=== PATIENT | male | born 1950 | race Caucasian/White ===

== ENCOUNTER 2024-10-02 10:01 | Emergency (ER) | payer MEDICARE, OTHER ==
--- OUTSIDE RECORDS SUMMARY | 2024-10-02 10:05 | XMS REPORT | Continuity of Care Document ---
Author Name Unknown Address [address] [facility] [place] [address] [facility] Address [address] [facility] [address] [place] [address] Care Team Providers Care Nursing Care Partner Name Role Phone VICKI CHANDRIKA Rhodes Primary Care Physician WAYNE Mehta Attending Clinician Unavailab WAYNE Medellin Attending Clinician UnavailWayne Barbosa DO Attending Clinician [phone] MANISHA SIMPSON K.HKenna Attending Clinician Chace Simpson MD, Manisha K.HKenna Attending Clinician + [phone] Doctor Unassigned, [place] Attending Clinician U Craig Rivera DO Attending Clinician [phone] Tera Orozco MD Attending Clinician [phone] Nurse, [facility] Attending Clinician Unava ilable Unknown, Attending Attending Clinician UnavailDana Nuñez RN Attending Clinician [phone] Isac Castro DO Attending Clinician [phone] Indira Judd Attending Clinician [phone] Santos Christianson MD Attending Clinician [phone] Verito Collado Attending Clinician Ailza Guerrier Attending Clinician [phone] Verito Collado Admitting Clinician Payers Payer Name Policy Type Policy Number Effective Date Expirati on Date Source WILLIAM O [id number] 2023 00:00:00 [employer] MED[employer]VANTAGE [id number] 2022 00:00:00 2023 00:00:00 Problems Condition Name Condition Details Condition Category Status Onset Date Resolution Date Last Treatment Date Treating Clinician Comments Source Fall Fall Disease Active 04-30 00:00: 00 [facility] Severe anemia Severe anemia Disease Active 04-29 00:00: 00 Overview: Formattin g of this note might be different from the original. Added automatic ally from request for surgery [id number] [facility] Allergies, Adverse Reactions, Alerts Allergy Name Allergy Type Status Severity Reaction(s) Onset Date Inactive Date Treating Clinician Comments Source NO KNOWN ALLERGIE S Drug Class Active [facility] Social History Social Habit Start Date Stop Date Quantity Comments Source History of tobacco use 1961-12-18 00:00:00 Cigarette Smoker [facility] Alcohol Frequency [facility] History SDOH [facility]d Drinks [facility] History SDOH Alcohol Binge [facility] Exposure to SARS-CoV-2 (event) 2022-12-11 00:00:00 2022-12-21 14:20:00 Not sure [facility] History of Social function 2020-04-24 00:00:00 2020-04-24 00:00:00 [facility] Alcohol intake 2019-12-07 00:00:00 2019-12-07 00:00:00 Current non-drinker of alcohol (finding) [facility] Education - What is the highest level of school you have completed or the highest degree you have received? 2019-04-30 00:00:00 2019-04-30 00:00:00 11th grade [facility] History SDOH Financial 2019-04-30 00:00:00 2019-04-30 00:00:00 3 [facility] History SDOH Food Worry 2019-04-30 00:00:00 2019-04-30 00:00:00 1 [facility] History SDOH Food Scarcity 2019-04-30 00:00:00 2019-04-30 00:00:00 1 [facility] History SDOH Transport Med 2019-04-30 00:00:00 2019-04-30 00:00:00 2 [facility] History SDOH Transport Non-Med 2019-04-30 00:00:00 2019-04-30 00:00:00 1 [facility] Alcohol Comment 2019-04-30 00:00:00 2019-04-30 00:00:00 LAST USE 1999 [facility] Tobacco use and exposure 2018-04-06 00:00:00 2018-04-06 00:00:00 Smokeless tobacco non-user [facility] Cigarettes smoked current (pack per day) - Reported 2018-04-06 00:00:00 2018-04-06 00:00:00 [facility] Cigarette pack-years 2018-04-06 00:00:00 2018-04-06 00:00:00 [facility] Sex Assigned At 1950 00:00:00 1950 00:00:00 [facility] Smoking Status Start Date Stop Date Source Smokes tobacco daily 2018-04-06 00:00:00 [facility] Medications Ordered Medication Name Filled Medication Name Start Date Stop Date Current Medication? Ordering Clinician Indication Dosage Frequency Signature (SIG) Comments Components Source apixaban (ELIQUIS) 5 mg tablet 3-04 00:00: 00 Yes 5mg Take 1 tablet by mouth in the morning and 1 tablet in the evening. Indication s: Afib [facility] apixaban (ELIQUIS) 5 mg tablet 2022-09 2-14 00:00: 00 Yes 5mg Take 1 tablet by mouth in the morning and 1 tablet in the evening. Indication s: Afib [facility] fluticasone propion-nishi meteroL 250-50 mcg/dose inhalation disk 2022-09-07 00:00: 00 Yes 1{puff} Inhale 1 Puff every 12 (twelve) hours. [facility] aspirin 81 mg chewable tablet 4-04 15:04: 04 Yes 81mg Take 1 tablet by mouth in the morning. [facility] metoprolol tartrate 50 mg tablet 4-04 00:00: 00 Yes [id number] 50mg Take 1 tablet by mouth in the morning and 1 tablet in the evening. [facility] simvastatin 40 mg tablet 4-04 00:00: 00 Yes [id number] 40mg Take 1 tablet by mouth in the morning. [facility] apixaban (ELIQUIS) 5 mg tablet 4- 00:00: 00 09-01 00:00 :00 No 5mg Take 1 tablet by mouth in the morning and 1 tablet in the evening. Indication s: Afib [facility] apixaban (ELIQUIS) 5 mg tablet 3-10 00:00: 00 12-21 00:00 :00 No 5mg Take 1 tablet by mouth in the morning and 1 tablet in the evening. Indication s: Afib [facility] metoprolol tartrate 50 mg tablet 1-10 00:00: 00 12-21 00:00 :00 No [id number] 50mg Take 1 tablet by mouth in the morning and 1 tablet in the evening. Do all this for 90 days. [facility] fluticasone propion-nishi meteroL 250-50 mcg/dose inhalation disk 1-03 00:00: 00 07-26 00:00 :00 No 1{puff} Inhale 1 Puff every 12 (twelve) hours. [facility] simvastatin 40 mg tablet 2021-09 1-02 00:00: 00 12-21 00:00 :00 No [id number] 40mg TAKE 1 TABLET BY MOUTH IN THE MORNING. [facility] simvastatin 40 mg tablet 0 8-04 00:00: 00 Yes [id number] 40mg Take 1 tablet by mouth in the morning. [facility] metoprolol tartrate 50 mg tablet 7-05 00:00: 00 09-28 00:00 :00 No 50mg Take 1 tablet by mouth 2 (two) times daily. [facility] simvastatin 40 mg tablet 7-05 00:00: 00 04-22 00:00 :00 No [id number] 40mg Take 1 tablet by mouth daily. [facility] simvastatin 40 mg tablet 4-27 00:00: 00 03-23 00:00 :00 No 40mg Take 1 tablet by mouth daily. [facility] apixaban (ELIQUIS) 5 mg tablet 3-16 00:00: 00 11-26 00:00 :00 No 5mg Take 1 tablet by mouth 2 (two) times daily. Indication s: Afib [facility] aspirin 81 mg chewable tablet 1- 14:53: 32 Yes 81mg Take 1 tablet by mouth in the morning. [facility] metoprolol tartrate 25 mg tablet 2020-09 2-17 00:00: 00 03-16 00:00 :00 No 50mg Take 50 mg by mouth 2 (two) times daily. [facility] fluticasone propion-nishi meteroL 250-50 mcg/dose inhalation disk 2020-09 2-16 00:00: 00 Yes 1{puff} Inhale 1 Puff every 12 (twelve) hours. [facility] fluticasone propion-nishi meteroL 250-50 mcg/dose inhalation disk 2020-09 2-16 00:00: 00 09-21 00:00 :00 No 1{puff} Inhale 1 Puff every 12 (twelve) hours. [facility] methocarbam oL 750 mg tablet 2020-09 2-15 00:00: 00 Yes 750mg Take 1 tablet by mouth in the morning and 1 tablet in the evening. [facility] albuterol (PROAIR HFA) 90 mcg/actuati on inhaler 2019-09 1-13 00:00: 00 Yes [id number] 2{puff} Inhale 2 Puffs every 4 (four) hours as needed for Wheezing or Shortness of Breath. [facility] ferrous sulfate 325 mg (65 mg iron) tablet 8-15 00:00: 00 Yes [id number] 325mg Take 1 tablet by mouth 3 (three) times daily with meals. [facility] HYDROcodone -acetaminop hen 10-325 mg tablet 5-16 00:00: 00 Yes TAKE 1 TABLET BY MOUTH TWICE DAILY NEEDED [facility] Immunizations Ordered Immunization Name Filled Immunization Name Date Status Comments Source SARS-COV-2 COVID-19 MODERNA VACCINE 2020-12-15 00:00:00 Completed [facility] SARS-COV-2 COVID-19 MODERNA VACCINE 2020-12-15 00:00:00 Completed [facility] SARS-COV-2 COVID-19 MODERNA VACCINE 2020-12-15 00:00:00 Completed [facility] SARS-COV-2 COVID-19 MODERNA VACCINE 2020-12-15 00:00:00 Completed [facility] SARS-COV-2 COVID-19 MODERNA 12+ YRS VACCINE 2020-12-15 00:00:00 Completed [facility] SARS-COV-2 COVID-19 MODERNA 12+ YRS VACCINE 2020-12-15 00:00:00 Completed [facility] SARS-COV-2 COVID-19 MODERNA 12+ YRS VACCINE 2020-12-15 00:00:00 Completed [facility] SARS-COV-2 COVID-19 MODERNA 12+ YRS VACCINE 2020-12-15 00:00:00 Completed [facility] SARS-COV-2 COVID-19 MODERNA 12+ YRS VACCINE 2020-12-15 00:00:00 Completed [facility] SARS-COV-2 COVID-19 MODERNA 12+ YRS VACCINE 2020-12-15 00:00:00 Completed [facility] SARS-COV-2 COVID-19 MODERNA 12+ YRS VACCINE 2020-12-15 00:00:00 Completed [facility] SARS-COV-2 COVID-19 MODERNA 12+ YRS VACCINE 2020-12-15 00:00:00 Completed [facility] SARS-COV-2 COVID-19 MODERNA 12+ YRS VACCINE 2020-12-15 00:00:00 Completed [facility] SARS-COV-2 COVID-19 MODERNA 12+ YRS VACCINE 2020-12-15 00:00:00 Completed [facility] SARS-COV-2 COVID-19 MODERNA 12+ YRS VACCINE 2020-12-15 00:00:00 Completed [facility] SARS-COV-2 COVID-19 MODERNA 12+ YRS VACCINE 2020-12-15 00:00:00 Completed [facility] SARS-COV-2 COVID-19 MODERNA 12+ YRS VACCINE 2020-12-15 00:00:00 Completed [facility] SARS-COV-2 COVID-19 MODERNA 12+ YRS VACCINE 2020-12-15 00:00:00 Completed [facility] SARS-COV-2 COVID-19 MODERNA 12+ YRS VACCINE 2020-12-15 00:00:00 Completed [facility] SARS-COV-2 COVID-19 MODERNA 12+ YRS VACCINE 2020-12-15 00:00:00 Completed [facility] SARS-COV-2 COVID-19 MODERNA 12+ YRS VACCINE 2020-12-15 00:00:00 Completed [facility] SARS-COV-2 COVID-19 MODERNA 12+ YRS VACCINE 2020-12-15 00:00:00 Completed [facility] SARS-COV-2 COVID-19 MODERNA VACCINE 2020-11-20 00:00:00 Completed [facility] SARS-COV-2 COVID-19 MODERNA VACCINE 2020-11-20 00:00:00 Completed [facility] SARS-COV-2 COVID-19 MODERNA VACCINE 2020-11-20 00:00:00 Completed [facility] SARS-COV-2 COVID-19 MODERNA VACCINE 2020-11-20 00:00:00 Completed [facility] SARS-COV-2 COVID-19 MODERNA 12+ YRS VACCINE 2020-11-20 00:00:00 Completed [facility] SARS-COV-2 COVID-19 MODERNA 12+ YRS VACCINE 2020-11-20 00:00:00 Completed [facility] SARS-COV-2 COVID-19 MODERNA 12+ YRS VACCINE 2020-11-20 00:00:00 Completed [facility] SARS-COV-2 COVID-19 MODERNA 12+ YRS VACCINE 2020-11-20 00:00:00 Completed [facility] SARS-COV-2 COVID-19 MODERNA 12+ YRS VACCINE 2020-11-20 00:00:00 Completed [facility] SARS-COV-2 COVID-19 MODERNA 12+ YRS VACCINE 2020-11-20 00:00:00 Completed [facility] SARS-COV-2 COVID-19 MODERNA 12+ YRS VACCINE 2020-11-20 00:00:00 Completed [facility] SARS-COV-2 COVID-19 MODERNA 12+ YRS VACCINE 2020-11-20 00:00:00 Completed [facility] SARS-COV-2 COVID-19 MODERNA 12+ YRS VACCINE 2020-11-20 00:00:00 Completed [facility] SARS-COV-2 COVID-19 MODERNA 12+ YRS VACCINE 2020-11-20 00:00:00 Completed [facility] SARS-COV-2 COVID-19 MODERNA 12+ YRS VACCINE 2020-11-20 00:00:00 Completed [facility] SARS-COV-2 COVID-19 MODERNA 12+ YRS VACCINE 2020-11-20 00:00:00 Completed [facility] SARS-COV-2 COVID-19 MODERNA 12+ YRS VACCINE 2020-11-20 00:00:00 Completed [facility] SARS-COV-2 COVID-19 MODERNA 12+ YRS VACCINE 2020-11-20 00:00:00 Completed [facility] SARS-COV-2 COVID-19 MODERNA 12+ YRS VACCINE 2020-11-20 00:00:00 Completed [facility] SARS-COV-2 COVID-19 MODERNA 12+ YRS VACCINE 2020-11-20 00:00:00 Completed [facility] SARS-COV-2 COVID-19 MODERNA 12+ YRS VACCINE 2020-11-20 00:00:00 Completed [facility] Influenza High Dose 2019-06-29 00:00:00 Completed [facility] Pneumococcal 13 Conjugate, PCV13 (Prevnar 13) 2019-06-29 00:00:00 Completed [facility] Influenza High Dose 2019-06-29 00:00:00 Completed [facility] Pneumococcal 13 Conjugate, PCV13 (Prevnar 13) 2019-06-29 00:00:00 Completed [facility] Influenza High Dose 2019-06-29 00:00:00 Completed [facility] Pneumococcal 13 Conjugate, PCV13 (Prevnar 13) 2019-06-29 00:00:00 Completed [facility] Influenza High Dose 2019-06-29 00:00:00 Completed [facility] Pneumococcal 13 Conjugate, PCV13 (Prevnar 13) 2019-06-29 00:00:00 Completed [facility] Influenza High Dose 2019-06-29 00:00:00 Completed [facility] Pneumococcal 13 Conjugate, PCV13 (Prevnar 13) 2019-06-29 00:00:00 Completed [facility] Influenza High Dose 2019-06-29 00:00:00 Completed [facility] Pneumococcal 13 Conjugate, PCV13 (Prevnar 13) 2019-06-29 00:00:00 Completed [facility] Influenza High Dose 2019-06-29 00:00:00 Completed [facility] Pneumococcal 13 Conjugate, PCV13 (Prevnar 13) 2019-06-29 00:00:00 Completed [facility] Influenza High Dose 2019-06-29 00:00:00 Completed [facility] Pneumococcal 13 Conjugate, PCV13 (Prevnar 13) 2019-06-29 00:00:00 Completed [facility] Influenza High Dose 2019-06-29 00:00:00 Completed [facility] Pneumococcal 13 Conjugate, PCV13 (Prevnar 13) 2019-06-29 00:00:00 Completed [facility] Influenza High Dose 2019-06-29 00:00:00 Completed [facility] Pneumococcal 13 Conjugate, PCV13 (Prevnar 13) 2019-06-29 00:00:00 Completed [facility] Influenza High Dose 2019-06-29 00:00:00 Completed [facility] Pneumococcal 13 Conjugate, PCV13 (Prevnar 13) 2019-06-29 00:00:00 Completed [facility] Influenza High Dose 2019-06-29 00:00:00 Completed [facility] Pneumococcal 13 Conjugate, PCV13 (Prevnar 13) 2019-06-29 00:00:00 Completed [facility] Influenza High Dose 2019-06-29 00:00:00 Completed [facility] Pneumococcal 13 Conjugate, PCV13 (Prevnar 13) 2019-06-29 00:00:00 Completed [facility] Influenza High Dose 2019-06-29 00:00:00 Completed [facility] Pneumococcal 13 Conjugate, PCV13 (Prevnar 13) 2019-06-29 00:00:00 Completed [facility] Influenza High Dose 2019-06-29 00:00:00 Completed [facility] Pneumococcal 13 Conjugate, PCV13 (Prevnar 13) 2019-06-29 00:00:00 Completed [facility] Influenza High Dose 2019-06-29 00:00:00 Completed [facility] Pneumococcal 13 Conjugate, PCV13 (Prevnar 13) 2019-06-29 00:00:00 Completed [facility] Influenza High Dose 2019-06-29 00:00:00 Completed [facility] Pneumococcal 13 Conjugate, PCV13 (Prevnar 13) 2019-06-29 00:00:00 Completed [facility] Influenza High Dose 2019-06-29 00:00:00 Completed [facility] Pneumococcal 13 Conjugate, PCV13 (Prevnar 13) 2019-06-29 00:00:00 Completed [facility] Influenza High Dose 2019-06-29 00:00:00 Completed [facility] Pneumococcal 13 Conjugate, PCV13 (Prevnar 13) 2019-06-29 00:00:00 Completed [facility] Influenza High Dose 2019-06-29 00:00:00 Completed [facility] Pneumococcal 13 Conjugate, PCV13 (Prevnar 13) 2019-06-29 00:00:00 Completed [facility] Influenza High Dose 2019-06-29 00:00:00 Completed [facility] Pneumococcal 13 Conjugate, PCV13 (Prevnar 13) 2019-06-29 00:00:00 Completed [facility] Influenza High Dose Unknown Completed [facility] Pneumococcal 13 Conjugate, PCV13 (Prevnar 13) Unknown Completed [facility] SARS-COV-2 COVID-19 MODERNA 12+ YRS VACCINE Unknown Completed [facility] Influenza High Dose Unknown Completed [facility] Pneumococcal 13 Conjugate, PCV13 (Prevnar 13) Unknown Completed [facility] SARS-COV-2 COVID-19 MODERNA 12+ YRS VACCINE Unknown Completed [facility] Influenza High Dose Unknown Completed [facility] Pneumococcal 13 Conjugate, PCV13 (Prevnar 13) Unknown Completed [facility] Influenza High Dose Unknown Completed [facility] Pneumococcal 13 Conjugate, PCV13 (Prevnar 13) Unknown Completed [facility] SARS-COV-2 COVID-19 MODERNA 12+ YRS VACCINE Unknown Completed [facility] Influenza High Dose Unknown Completed [facility] Pneumococcal 13 Conjugate, PCV13 (Prevnar 13) Unknown Completed [facility] SARS-COV-2 COVID-19 MODERNA 12+ YRS VACCINE Unknown Completed [facility] Influenza High Dose Unknown Completed [facility] Pneumococcal 13 Conjugate, PCV13 (Prevnar 13) Unknown Completed [facility] SARS-COV-2 COVID-19 MODERNA 12+ YRS VACCINE Unknown Completed [facility] Influenza High Dose Unknown Completed [facility] Pneumococcal 13 Conjugate, PCV13 (Prevnar 13) Unknown Completed [facility] SARS-COV-2 COVID-19 MODERNA 12+ YRS VACCINE Unknown Completed [facility] Influenza High Dose Unknown Completed [facility] Pneumococcal 13 Conjugate, PCV13 (Prevnar 13) Unknown Completed [facility] SARS-COV-2 COVID-19 MODERNA 12+ YRS VACCINE Unknown Completed [facility] Influenza High Dose Unknown Completed [facility] Pneumococcal 13 Conjugate, PCV13 (Prevnar 13) Unknown Completed [facility] SARS-COV-2 COVID-19 MODERNA 12+ YRS VACCINE Unknown Completed [facility] Influenza High Dose Unknown Completed [facility] Pneumococcal 13 Conjugate, PCV13 (Prevnar 13) Unknown Completed [facility] SARS-COV-2 COVID-19 MODERNA 12+ YRS VACCINE Unknown Completed [facility] Vital Signs Vital Name Observation Time Observation Value Comments S ource Systolic blood pressure 2022-12-21 19:46:00 154 mm[Hg] [facility] Diastolic blood pressure 2022-12-21 19:46:00 68 mm[Hg] [facility] Heart rate 2022-12-21 19:46:00 60 /min [facility] Body height 2022-12-21 19:46:00 167.6 cm [facility] Body weight 2022-12-21 19:46:00 82.872 kg [facility] BMI 2022-12-21 19:46:00 29.49 kg/m2 [facility] Oxygen saturation in Arterial blood by Pulse oximetry 2022-12-21 19:46:00 93 /min [facility] Procedures Procedure Date / Time Performed Performing Clinician Source MEDICATION CORRESPONDENCE 2023-11-29 05:01:00 Do ctor Unassigned, [place] [facility] MEDICATION CORRESPONDENCE 2023-09-02 06:01:00 Do ctor Unassigned, [place] [facility] MEDICATION CORRESPONDENCE 2023-07-22 05:01:00 Do ctor Unassigned, [place] [facility] MEDICATION CORRESPONDENCE 2023-02-15 05:01:00 Do ctor Unassigned, [place] [facility] INSURANCE CORRESPONDENCE 2023-02-01 05:01:00 Doc tor Unassigned, [place] [facility] HB ECG ROUTINE & RHYTHM STRIP 2022-12-21 19:39:39 Manisha Simpson [facility] ASSIGNMENT OF BENEFITS 2022-12-21 19:19:05 Docto r Unassigned, [place] [facility] EXTERNAL PROVIDER - ADC CARDIOLOGY 2022-11-30 05:01:00 Doctor Unassigned, [place] [facility] INSURANCE CORRESPONDENCE 2022-08-30 06:01:00 Doc tor Unassigned, [place] [facility] MEDICATION CORRESPONDENCE 2022-07-26 06:01:00 Do ctor Unassigned, [place] [facility] MEDICATION CORRESPONDENCE 2022-04-06 05:01:00 Do ctor Unassigned, [place] [facility] AUTHORIZATION FOR RELEASE OF PHI 2022-03-23 05:01:00 Doctor Unassigned, [place] [facility] Encounters Start Date/Time End Date/Time Encounter Type Admission Type Attending Clinicians Care Facility Care Department Encounter ID Source 2024-10-02 14:00:00 2024-10-02 14:00:00 Outpatient WAYNE AGUAYO SHIWAN [facility] [id number] [facility] 2024-08-31 09:00:00 2024-08-31 09:00:00 Outpatient R WAYNE MÁRQUEZ SHIWAN [facility] [id number] [facility] 2024-01-16 00:00:00 2024-01-16 00:00:00 Telephone Wayne Márquez [facility] [id number] 350.1.13.10 4.2.7.2.686 [id number] [facility] 2023-12-22 13:00:00 2023-12-22 13:00:00 Outpatient R MANISHA SIMPSON [facility] [id number] [facility] 2023-12-22 00:00:00 2023-12-22 00:00:00 Refill Manisha Simpson [facility] [id number] 350.1.13.10 4.2.7.2.686 [id number] [facility] 2023-11-30 00:00:00 2023-11-30 00:00:00 Telephone Manisha Simpson [facility] [id number] 350.1.13.10 4.2.7.2.686 [id number] [facility] 2023-11-29 00:00:00 2023-11-29 00:00:00 Orders Only Doctor Unassigned, [place] [facility] [id number] 350.1.13.10 4.2.7.2.686 [id number] [facility] 2023-09-02 00:00:00 2023-09-02 00:00:00 Orders Only Doctor Unassigned, [place] [facility] [id number] 350.1.13.10 4.2.7.2.686 [id number] [facility] 2023-08-29 00:00:00 2023-08-29 00:00:00 Telephone Manisha Simpson [facility] [id number] 350.1.13.10 4.2.7.2.686 [id number] [facility] 2023-07-25 00:00:00 2023-07-25 00:00:00 Telephone Wayne Máruqez [facility] [id number] 350.1.13.10 4.2.7.2.686 [id number] [facility] 2023-07-22 00:00:00 2023-07-22 00:00:00 Orders Only Doctor Unassigned, [place] [facility] [id number] 350.1.13.10 4.2.7.2.686 [id number] [facility] 2023-03-02 00:00:00 2023-03-02 00:00:00 Telephone Manisha Simpson [facility] [id number] 350.1.13.10 4.2.7.2.686 [id number] [facility] 2023-02-15 00:00:00 2023-02-15 00:00:00 Telephone Manisha Simpson [facility] [id number] 350.1.13.10 4.2.7.2.686 [id number] [facility] 2023-02-15 00:00:00 2023-02-15 00:00:00 Orders Only Doctor Unassigned, [place] [facility] [id number] 350.1.13.10 4.2.7.2.686 [id number] [facility] 2023-02-01 00:00:00 2023-02-01 00:00:00 Orders Only Doctor Unassigned, [place] [facility] [id number] 350.1.13.10 4.2.7.2.686 [id number] [facility] 2023-01-31 00:00:00 2023-01-31 00:00:00 Telephone Manisha Simpson [facility] 1.2.840.114 350.1.13.10 4.2.7.2.686 [id number] 059 [id number] [facility] 2022-12-22 00:00:00 2022-12-22 00:00:00 Telephone Manisha Simpson [facility] 1.2840.114 350.1.13.10 4.2.7.2.686 [id number] 059 [id number] [facility] 2022-12-21 14:30:00 2022-12-21 15:10:33 Outpatient R MANISHA SIMPSON [facility] [id number] [facility] 2022-12-21 14:30:00 2022-12-21 15:10:33 Office Visit Manisha Simpson [facility] 1.2840.114 350.1.13.10 4.2.7.2.686 [id number] 059 [id number] [facility] 2022-12-21 00:00:00 2022-12-21 00:00:00 Orders Only Doctor Unassigned, [place] [facility] 1.2.840.114 350.1.13.10 4.2.7.2.686 [id number] 009 [id number] [facility] 2022-11-30 00:00:00 2022-11-30 00:00:00 Orders Only Doctor Unassigned, [place] [facility] 1.2.840.114 350.1.13.10 4.2.7.2.686 [id number] 009 [id number] [facility] 2022-11-29 00:00:00 2022-11-29 00:00:00 Case Management Manisha Simpson [facility] 1.2.840.114 350.1.13.10 4.2.7.2.686 [id number] 059 [id number] [facility] 2022-11-25 00:00:00 2022-11-25 00:00:00 Telephone Manisha Simpson [facility] 1.2.840.114 350.1.13.10 4.2.7.2.686 [id number] 059 [id number] [facility] 2022-09-27 00:00:00 2022-09-27 00:00:00 Telephone Manisha Simpson [facility] 1.2.840.114 350.1.13.10 4.2.7.2.686 [id number] 059 [id number] [facility] 2022-09-20 00:00:00 2022-09-20 00:00:00 Wayne Seay [facility] 1.2.840.114 350.1.13.10 4.2.7.2.686 [id number] 085 [id number] [facility] 2022-09-20 00:00:00 2022-09-20 00:00:00 Wayne Seay [facility] 1.2.840.114 350.1.13.10 4.2.7.2.686 [id number] 085 [id number] [facility] 2022-09-15 16:00:00 2022-09-15 16:00:00 Outpatient R EVELIN SIMPSONIL [facility] [id number] [facility] 2022-08-30 00:00:00 2022-08-30 00:00:00 Orders Only Doctor Unassigned, [place] [facility] 1.2.840.114 350.1.13.10 4.2.7.2.686 [id number] 009 [id number] [facility] 2022-07-26 00:00:00 2022-07-26 00:00:00 Orders Only Doctor Unassigned, [place] [facility] 1.2.840.114 350.1.13.10 4.2.7.2.686 [id number] 009 [id number] [facility] 2022-07-21 00:00:00 2022-07-21 00:00:00 Manisha DealKenna [facility] 1.2.840.114 350.1.13.10 4.2.7.2.686 [id number] 059 [id number] [facility] 2022-07-21 00:00:00 2022-07-21 00:00:00 Manisha DealHKenna [facility] 1.2.840.114 350.1.13.10 4.2.7.2.686 [id number] 059 [id number] [facility] 2022-04-21 00:00:00 2022-04-21 00:00:00 Manisha DealHKenna [facility] 1.2.840.114 350.1.13.10 4.2.7.2.686 [id number] 059 [id number] [facility] 2022-04-06 00:00:00 2022-04-06 00:00:00 Orders Only Doctor Unassigned, [place] [facility] 1.2.840.114 350.1.13.10 4.2.7.2.686 [id number] 009 [id number] [facility] 2022-03-29 00:00:00 2022-03-29 00:00:00 Patient Secure Msg Doctor Unassigned, [place] [facility] 1.2.840.114 350.1.13.10 4.2.7.2.686 [id number] 059 [id number] [facility] 2022-03-23 00:00:00 2022-03-23 00:00:00 Orders Only Doctor Unassigned, [place] [facility] 1.2.840.114 350.1.13.10 4.2.7.2.686 [id number] 009 [id number] [facility] 2022-03-16 00:00:00 2022-03-16 00:00:00 Refill Manisha SimpsonHKenna [facility] 1.2840.114 350.1.13.10 4.2.7.2.686 [id number] 059 [id number] [facility] 2022-03-11 00:00:00 2022-03-11 00:00:00 Telephone Manisha Simpson [facility] 1.2840.114 350.1.13.10 4.2.7.2.686 [id number] 059 [id number] [facility] 2022-03-11 00:00:00 2022-03-11 00:00:00 Orders Only Doctor Unassigned, [place] [facility] 1.2.840.114 350.1.13.10 4.2.7.2.686 [id number] 009 [id number] [facility] 2022-01-29 12:00:00 2022-01-29 12:00:00 Telemedici ne Visit Wayne Márquez [facility] 1.2840.114 350.1.13.10 4.2.7.2.686 [id number] 085 [id number] [facility] 2022-01-29 12:00:00 2022-01-29 11:23:44 Outpatient R YULISA WAYNE YIP [facility] [id number] [facility] 2022-01-28 13:30:00 2022-01-28 13:30:00 Outpatient R MÁRQUEZ WAYNE YIP [facility] [id number] [facility] 2022-01-13 00:00:00 2022-01-13 00:00:00 Refill Manisha SimpsonHKenna [facility] 1.2.840.114 350.1.13.10 4.2.7.2.686 [id number] 059 [id number] [facility] 2021-12-02 00:00:00 2021-12-02 00:00:00 Refill Manisha Simpson K.HKenna [facility] 1.2.840.114 350.1.13.10 4.2.7.2.686 [id number] 059 [id number] [facility] 2021-11-12 00:00:00 2021-11-12 00:00:00 Refill Manisha Simpson KKennaHKenna [facility] 1.2.840.114 350.1.13.10 4.2.7.2.686 [id number] 059 [id number] [facility] 2021-11-02 00:00:00 2021-11-02 00:00:00 Telephone Manisha Simpson K.HKenna [facility] 1.2.840.114 350.1.13.10 4.2.7.2.686 [id number] 059 [id number] [facility] 2021-10-20 00:00:00 2021-10-20 00:00:00 Orders Only Doctor Unassigned, [place] [facility] 1.2.840.114 350.1.13.10 4.2.7.2.686 [id number] [id number] [facility] 2021-10-15 00:00:00 2021-10-15 00:00:00 Telephone Manisha Simpson [facility] 1.2.840.114 350.1.13.10 4.2.7.2.686 [id number] 059 [id number] [facility] 2021-09-21 14:30:00 2021-09-21 14:59:23 Outpatient R TATIANA [facility] [id number] [facility] 2021-09-21 14:30:00 2021-09-21 14:59:23 [id number] 2021-09-21 14:30:00 2021-09-21 14:59:23 Office Visit Manisha Simpson [facility] 1.2.840.114 350.1.13.10 4.2.7.2.686 [id number] 059 [id number] [facility] 2021-09-21 00:00:00 2021-09-21 00:00:00 Orders Only Doctor Unassigned, [place] [facility] 1.2840.114 350.1.13.10 4.2.7.2.686 [id number] 009 [id number] [facility] 2021-09-14 00:00:00 2021-09-14 00:00:00 Telephone Manisha Simpson [facility] 1.2.840.114 350.1.13.10 4.2.7.2.686 [id number] 059 [id number] [facility] 2021-09-03 00:00:00 2021-09-03 00:00:00 Wayne Seay [facility] 1.2.840.114 350.1.13.10 4.2.7.2.686 [id number] 085 [id number] [facility] 2021-09-02 00:00:00 2021-09-02 00:00:00 Orders Only Doctor Unassigned, [place] [facility] 1.2.840.114 350.1.13.10 4.2.7.2.686 [id number] 009 [id number] [facility] 2021-08-17 00:00:00 2021-08-17 00:00:00 Case Management Manisha Simpson [facility] 1.2.840.114 350.1.13.10 4.2.7.2.686 [id number] [id number] [facility] 2021-08-07 00:00:00 2021-08-07 00:00:00 Telephone Manisha Simpson [facility] 1.2.840.114 350.1.13.10 4.2.7.2.686 [id number] 059 [id number] [facility] 2021-08-06 00:00:00 2021-08-06 00:00:00 Orders Only Doctor Unassigned, [place] [facility] 1.2.840.114 350.1.13.10 4.2.7.2.686 [id number] 009 [id number] [facility] 2021-08-06 00:00:00 2021-08-06 00:00:00 Telephone Manisha Simpson [facility] 1.2.840.114 350.1.13.10 4.2.7.2.686 [id number] 059 [id number] [facility] 2021-08-03 00:00:00 2021-08-03 00:00:00 Telephone Manisha Simpson [facility] 1.2.840.114 350.1.13.10 4.2.7.2.686 [id number] 059 [id number] [facility] 2021-08-03 00:00:00 2021-08-03 00:00:00 Telephone Manisha Simpson [facility] 1.2.840.114 350.1.13.10 4.2.7.2.686 [id number] 059 [id number] [facility] 2021-03-05 00:00:00 2021-03-05 00:00:00 Orders Only Doctor Unassigned, [place] [facility] 1.2.840.114 350.1.13.10 4.2.7.2.686 [id number] 009 [id number] [facility] 2021-01-14 00:00:00 2021-01-14 00:00:00 Telephone Manisha Simpson [facility] 1.2.840.114 350.1.13.10 4.2.7.2.686 [id number] 059 [id number] [facility] 2021-01-14 00:00:00 2021-01-14 00:00:00 Orders Only Doctor Unassigned, [place] [facility] 1.2.840.114 350.1.13.10 4.2.7.2.686 [id number] 009 [id number] [facility] 2021-01-02 00:00:00 2021-01-02 00:00:00 Orders Only Doctor Unassigned, [place] [facility] 1.2.840.114 350.1.13.10 4.2.7.2.686 [id number] 009 [id number] [facility] 2020-12-30 00:00:00 2020-12-30 00:00:00 Refill Manisha Simpson [facility] 1.2.840.114 350.1.13.10 4.2.7.2.686 [id number] 059 [id number] [facility] 2020-12-25 00:00:00 2020-12-25 00:00:00 Refill Manisha Simpson [facility] 1.2.840.114 350.1.13.10 4.2.7.2.686 [id number] 059 [id number] [facility] 2020-12-25 00:00:00 2020-12-25 00:00:00 Refill Evelin Simpsonil [facility] 1.2.840.114 350.1.13.10 4.2.7.2.686 [id number] 059 [id number] [facility] 2020-12-10 00:00:00 2020-12-10 00:00:00 Refill Manisha Simpson [facility] 1.2.840.114 350.1.13.10 4.2.7.2.686 [id number] 059 [id number] [facility] 2020-11-24 00:00:00 2020-11-24 00:00:00 Patient Outreach Craig Jasso [facility] 1.2.840.114 350.1.13.10 4.2.7.2.686 [id number] [facility] 2020-11-07 00:00:00 2020-11-07 00:00:00 Refill Evelin Simpsonil [facility] 1.2.840.114 350.1.13.10 4.2.7.2.686 [id number] 059 [id number] [facility] 2020-10-09 00:00:00 2020-10-09 00:00:00 Orders Only Doctor Unassigned, [place] [facility] 1.2.840.114 350.1.13.10 4.2.7.2.686 [id number] [id number] [facility] 2020-09-25 00:00:00 2020-09-25 00:00:00 Refill Manisha Simpson [facility] 1.2.840.114 350.1.13.10 4.2.7.2.686 [id number] 059 [id number] [facility] 2020-09-25 00:00:00 2020-09-25 00:00:00 Refill Manisha Simpson [facility] 1.2.840.114 350.1.13.10 4.2.7.2.686 [id number] 059 [id number] [facility] 2020-09-10 00:00:00 2020-09-10 00:00:00 Telephone Manisha Simpson [facility] 1.2.840.114 350.1.13.10 4.2.7.2.686 [id number] 059 [id number] [facility] 2020-08-27 00:00:00 2020-08-27 00:00:00 Orders Only Doctor Unassigned, [place] [facility] 1.2.840.114 350.1.13.10 4.2.7.2.686 [id number] [id number] [facility] 2020-08-01 10:25:40 2020-08-01 10:45:40 Telemedici ne Visit Wayne Márquez [facility] 1.2.840.114 350.1.13.10 4.2.7.2.686 [id number] 085 [id number] [facility] 2020-08-01 10:00:00 2020-08-01 10:00:00 Outpatient R WAYNE MÁRQUEZ SHIWAN [facility] [id number] [facility] 2020-07-31 00:00:00 2020-07-31 00:00:00 Orders Only Doctor Unassigned, [place] [facility] 1.2840.114 350.1.13.10 4.2.7.2.686 [id number] 009 [id number] [facility] 2020-07-21 00:00:00 2020-07-21 00:00:00 Telephone Manisha Simpson [facility] 1.2840.114 350.1.13.10 4.2.7.2.686 [id number] 059 [id number] [facility] 2020-07-20 00:00:00 2020-07-20 00:00:00 Orders Only Doctor Unassigned, [place] [facility] 1.2840.114 350.1.13.10 4.2.7.2.686 [id number] 009 [id number] [facility] 2020-06-12 11:10:53 2020-06-12 13:03:48 Telemedici ne Visit Manisha Simpson [facility] 1.2840.114 350.1.13.10 4.2.7.2.686 [id number] 059 [id number] [facility] 2020-06-12 11:00:00 2020-06-12 13:03:48 Outpatient R MANISHA SIMPSON [facility] [id number] [facility] 2020-06-06 00:00:00 2020-06-06 00:00:00 Refill Manisha Simpson [facility] 1.2840.114 350.1.13.10 4.2.7.2.686 [id number] 059 [id number] [facility] 2020-06-06 00:00:00 2020-06-06 00:00:00 Telephone Manisha Simpson [facility] 1.2840.114 350.1.13.10 4.2.7.2.686 [id number] 059 [id number] [facility] 2020-05-12 00:00:00 2020-05-12 00:00:00 Orders Only Doctor Unassigned, [place] [facility] 1.2.840.114 350.1.13.10 4.2.7.2.686 [id number] 009 [id number] [facility] 2020-01-28 00:00:00 2020-01-28 00:00:00 Refill Manisha SimpsonHKenna [facility] 1.2.840.114 350.1.13.10 4.2.7.2.686 [id number] 059 [id number] [facility] 2020-01-01 00:00:00 2020-01-01 00:00:00 Telephone Manisha Simpson [facility] 1.2.840.114 350.1.13.10 4.2.7.2.686 [id number] 059 [id number] [facility] 2019-12-07 08:13:21 2019-12-07 21:11:22 Telemedici ne Visit Manisha Simpson [facility] 1.2.840.114 350.1.13.10 4.2.7.2.686 [id number] 059 [id number] [facility] 2019-12-07 15:30:00 2019-12-07 15:30:00 Outpatient R MANISHA SIMPSON [facility] [id number] [facility] 2019-12-06 00:00:00 2019-12-06 00:00:00 Refill Manisha SimpsonHKenna [facility] 1.2.840.114 350.1.13.10 4.2.7.2.686 [id number] 059 [id number] [facility] 2019-10-29 00:00:00 2019-10-29 00:00:00 Refill Manisha Simpson [facility] 1.2.840.114 350.1.13.10 4.2.7.2.686 [id number] 059 [id number] [facility] 2019-06-05 00:00:00 2019-06-05 00:00:00 Orders Only Doctor Unassigned, [place] [facility] 1.2.840.114 350.1.13.10 4.2.7.2.686 [id number] 009 [id number] [facility] 2019-06-04 00:00:00 2019-06-04 00:00:00 Telephone Wayne Márquez [facility] 1.2.840.114 350.1.13.10 4.2.7.2.686 [id number] 085 [id number] [facility] 2019-05-23 00:00:00 2019-05-23 00:00:00 Telephone Manisha Simpson [facility] 1.2.840.114 350.1.13.10 4.2.7.2.686 [id number] 059 [id number] [facility] 2019-05-18 19:48:32 2019-05-18 21:58:00 Emergency Tera Orozco S [facility] 1.2.840.114 350.1.13.10 4.2.7.2.686 [id number] 084 [id number] [facility] 2019-05-18 19:16:43 2019-05-18 19:31:43 Nurse Visit Nurse, [facility], Attending [facility] 1.2.840.114 350.1.13.10 4.2.7.2.686 [id number] [facility] 2019-05-18 00:00:00 2019-05-18 00:00:00 Orders Only Doctor Unassigned, [place] [facility] 1.2.840.114 350.1.13.10 4.2.7.2.686 [id number] 009 [id number] [facility] 2019-05-07 00:00:00 2019-05-07 00:00:00 Transition of Care Dana Austin 1.2.840.114 350.1.13.10 4.2.7.2.686 [id number] [facility] 2019-05-04 00:00:00 2019-05-04 00:00:00 Transition of Care Dana Austin 1.2.840.114 350.1.13.10 4.2.7.2.686 [id number] [facility] 2019-05-04 00:00:00 2019-05-04 00:00:00 Telephone Isac Castro [facility] 1.2.840.114 350.1.13.10 4.2.7.2.686 [id number] [facility] 2019-04-29 19:06:23 2019-05-03 16:49:00 Hospital Encounter Indira Jin, Santos Collado, [facility] 1.2.840.114 350.1.13.10 4.2.7.2.686 [id number] 094 [id number] [facility] 2019-04-19 00:00:00 2019-04-19 00:00:00 Telephone Aliza Mccall [facility] 1.2.840.114 350.1.13.10 4.2.7.2.686 [id number] 085 [id number] [facility]
[2024-10-02] MEDS ORDERED: ALBUTEROL 2.5 MG/3 ML NEB SOL ONE (10:30)
[2024-10-02] MEDS ORDERED: IPRATROPIUM BROM 0.5MG/2.5ML ONE (10:30)
[2024-10-02 10:36] LABS: Absolute Lymphocytes (CBC) 0.6 K/uL (0.7-4.9); Absolute Monocytes 1.6 K/uL (0.1-1.3); Absolute Neutrophil 7.9 K/uL (1.8-8.0); Basophils % 0.3 % (0-1.3); Eosinophils % 0.1 % (0-4.4); Hematocrit 22.4 % (39.6-49.0); Hemoglobin 6.8 g/dL (13.6-17.9); Lymphocytes % 5.7 % (15.3-44.8); MCH 27.3 pg (27.0-35.0); MCHC 30.4 g/dL (32.0-36.0); MCV 89.9 fL (80-100); MPV 7.8 fL (7.6-11.3); Neutrophils % 77.9 % (41.7-73.7); Nucleated RBC Absolute Count 0.1 (0-0); Nucleated Red Blood Cells % 0.5 % (0-0); Platelets 224 thou/uL (152-406)
[2024-10-02 10:55] LABS: Albumin 2.9 g/dL (3.4-5.0); Albumin/Globulin Ratio 0.9 (1.1-1.8); Bilirubin Direct 0.5 mg/dL (0-0.2); Bilirubin Indirect, Calculated 0.5 mg/dL (0.2-0.8); Globulin 3.4 g/dL (2.3-3.5); Protein, Total 6.3 g/dL (6.4-8.2); Troponin High Sensitivity 13.6 pg/mL (<58.9)
[2024-10-02 11:06] LABS: SARS-CoV-2 Antigen CONTROL BLUE LINE VIS/BG OK; SARS-CoV-2 Antigen Rapid Res Negative (Negative)
--- NOTE | 2024-10-02 12:12 | RAD REPORT ---
EXAMINATION: ONE VIEW CHEST XR CLINICAL INDICATION: DIFFICULTY BREATHING TECHNIQUE: Frontal chest projection is submitted. Examination is limited by patient positioning and t echnique. COMPARISON: 05/24/2013 FINDINGS: Extensive bilateral pulmonary opacities are present with bilateral pleural effusions. The heart is mo derately enlarged. No displaced fractures identified. IMPRESSION: Moderate to severe CHF pattern is favored. Underlying infection/pneumonia not excluded.
[2024-10-02] MEDS ORDERED: FUROSEMIDE 40 MG/4 ML VIAL ONE (12:55)
--- NOTE | 2024-10-02 12:56 | EDPHYS ---
Physician Documentation [facility] Name: Seferino Anton Age: 74 yrs Sex: Male : 1950 Arrival Date: 10/02/2024 Time: 10:01 Bed 3 Private MD: ED Physician Chuckie Galvan HPI: 10/02 10:15 This 74 yrs old Male presents to ER via EMS with complaints of Breathing Difficulty. rt 10:15 Patient presents to the ED with difficulty breathing. Patient is a cough, congestion, rt worsening breathing for the past 4 days. Reports edema, states that he has been sleeping in a chair. Patient increased his home O2 from 4 L to 6 L by nasal cannula. EMS states that the patient's oxygen saturations were 82% on the 6 L, improving with DuoNebs, Solu-Medrol, magnesium, O2 by nonrebreather. Denies other acute complaints, symptoms are moderate severity, no other aggravating or elevating factors.. Historical: - Allergies: 10:00 No Known Allergies; db - Home Meds: 17:17 Eliquis oral [Active]; amlodipine oral [Active]; Advair Diskus Inhl [Active]; db Simvastatin Oral [Active]; - PMHx: 17:17 Hypertensive disorder; Atrial fibrillation; Hypercholesterolemia; db - Immunization history:: Adult Immunizations unknown. - Infectious Disease History:: Denies. - Social history:: Smoking status: Patient reports the use of cigarette tobacco products, smokes one pack cigarettes per day. - Family history:: not pertinent. ROS: 10:15 Constitutional: Negative for fever, chills, and weight loss, Cardiovascular: Negative rt for chest pain, palpitations, and edema, Abdomen/GI: Negative for abdominal pain, nausea, vomiting, diarrhea, and constipation, MS/Extremity: Negative for injury and deformity, Skin: Negative for injury, rash, and discoloration, Neuro: Negative for headache, weakness, numbness, tingling, and seizure, 10:15 Respiratory: Positive for cough, shortness of breath, Exam: 10:15 Constitutional: This is a well developed, well nourished patient who is awake, alert, rt and in no acute distress. Head/Face: Normocephalic, atraumatic. Chest/axilla: Normal chest wall appearance and motion. Nontender with no deformity. No lesions are appreciated. Cardiovascular: Regular rate and rhythm with a normal S1 and S2. No gallops, murmurs, or rubs. Normal PMI, no JVD. No pulse deficits. Abdomen/GI: Soft, non-tender, with normal bowel sounds. No distension or tympany. No guarding or rebound. No evidence of tenderness throughout. Skin: Warm, dry with normal turgor. Normal color with no rashes, no lesions, and no evidence of cellulitis. MS/ Extremity: Pulses equal, no cyanosis. Neurovascular intact. Full, normal range of motion. Neuro: Awake and alert, GCS 15, oriented to person, place, time, and situation. Cranial nerves II-XII grossly intact. Motor strength 5/5 in all extremities. Sensory grossly intact. Cerebellar exam normal. Normal gait. 10:15 Respiratory: Wheezes, diminished breath sounds throughout all lung llanos, moderate respiratory distress, 10:40 ECG was reviewed by the Attending Physician. rt Vital Signs: 10:00 BP 146 / 64; Pulse 90; Resp 28; Temp 97.7; Pulse Ox 86% on 4 lpm NC; Weight 93.89 kg; db 10:30 BP 144 / 60; Pulse 84; Resp 18; Pulse Ox 100% ; db 11:30 BP 136 / 55; Pulse 81; Resp 16; Pulse Ox 100% on BiPAP; db 12:45 BP 130 / 55; Pulse 89; Resp 23; Pulse Ox 94% ; db 13:17 BP 130 / 48; Pulse 87; Resp 17; Pulse Ox 88% on 4 lpm NC; db 14:00 BP 139 / 63; Pulse 93; Resp 20; Pulse Ox 100% on BiPAP; db 14:18 BP 137 / 70; Pulse 93; Pulse Ox 97% on 8 lpm NC; db 14:30 BP 124 / 53; Pulse 83; Resp 20; Pulse Ox 98% on 8 lpm NC; db 15:00 BP 139 / 55; Pulse 94; Resp 28; Pulse Ox 94% on 8 lpm NC; db 16:00 BP 136 / 53; Pulse 83; Resp 18; Pulse Ox 97% ; db 16:30 BP 149 / 51; Pulse 92; Resp 22; Temp 98(O); Pulse Ox 95% on 8 lpm NC; db 17:25 BP 136 / 59; Pulse 83; Resp 18; Temp 98.6(O); Pulse Ox 98% ; db 18:00 BP 135 / 55; Pulse 86; Resp 19; Pulse Ox 98% on 8 lpm NC; db 18:15 BP 129 / 53; Pulse 76; Resp 18; Pulse Ox 96% ; db 10:00 PLACED ON NON REBREATHER. DR. GALVAN AT PATIENT BEDSIDE. RT CALLED db Carlos Coma Score: 16:53 Eye Response: spontaneous(4). Motor Response: obeys commands(6). Verbal Response: db oriented(5). Total: 15. MDM: 10:06 Medical Screening Exam initiated rt 12:58 Differential diagnosis: Pneumonia, CHF, symptomatic anemia. Data reviewed: vital signs, rt nurses notes, lab test result(s), EKG, radiologic studies. Consideration of Admission/Observation Patient requires transfer for GI coverage. 12:59 I considered the following discharge prescriptions or medication management in the rt emergency department Medications were administered in the Emergency Department. See MAR. Independent interpretation of the following test(s) in the Emergency Department X-Ray: My interpretation is Edema seen on interpretation of x-ray images. Care significantly affected by the following chronic conditions: Atrial fibrillation. 13:02 Counseling: I had a detailed discussion with the patient and/or guardian regarding the rt historical points, exam findings, and any diagnostic results supporting the discharge/admit diagnosis, lab results, radiology results, the need to transfer to another facility, [facility] does not immediately have the required specialist. Response to treatment: the patient's symptoms have markedly improved after treatment. 10/02 10:26 Order name: Basic Metabolic Panel EDCO 10/02 10:26 Order name: Liver (Hepatic) Function EDCO 10/02 10:26 Order name: Troponin High Sensitivity EDCO 10/02 10:26 Order name: NT PRO-BNP EDCO 10/02 10:26 Order name: SARS-COV-2 Antigen Rapid EDCO 10/02 10:26 Order name: Lactate w/ 2H reflex if indic. EDCO 10/02 10:26 Order name: CBC with Automated Diff EDCO 10/02 10:26 Order name: Influenza Screen (A EDCO 10/02 10:44 Order name: CBC with Automated Diff; Complete Time: 12:24 EDCO 10/02 10:55 Order name: Basic Metabolic Panel; Complete Time: 12:24 EDCO 10/02 10:55 Order name: Liver (Hepatic) Function; Complete Time: 12:24 EDMS 10/02 10:55 Order name: Troponin High Sensitivity; Complete Time: 12:24 EDMS 10/02 10:55 Order name: NT PRO-BNP; Complete Time: 12:24 EDMS 10/02 10:57 Order name: Lactate w/ 2H reflex if indic.; Complete Time: 12:24 EDMS 10/02 11:00 Order name: Ghost Lactate-NO COLLECT Timer EDMS 10/02 11:06 Order name: SARS-COV-2 Antigen Rapid; Complete Time: 12:24 EDMS 10/02 11:07 Order name: Influenza Screen (A ; Complete Time: 12:24 EDMS 10/02 12:50 Order name: Bb Add On bd 10/02 12:56 Order name: Type and Screen EDMS 10/02 12:56 Order name: Packed RBC Leukored EDMS 10/02 12:57 Order name: Ghost Lactate-NO COLLECT Timer; Complete Time: 14:49 EDMS 10/02 13:31 Order name: Influenza Screen (A EDMS 10/02 13:55 Order name: Lactate Sepsis 2 HR Follow-up; Complete Time: 14:49 EDMS 10/02 10:57 Order name: Chest Single View EDMS 10/02 12:12 Order name: RAD; Complete Time: 12:24 EDMS 10/02 10:07 Order name: Cardiac monitoring; Complete Time: 10:09 rt 10/02 10:07 Order name: EKG - Nurse/Tech; Complete Time: 10:41 rt 10/02 10:07 Order name: IV Saline Lock; Complete Time: 10: rt 10/02 10:07 Order name: Labs collected and sent; Complete Time: 10:19 rt 10/02 10:07 Order name: O2 Per Protocol; Complete Time: 10: rt 10/02 10:07 Order name: O2 Sat Monitoring; Complete Time: 10:09 rt EC:40 Rate is 91 beats/min. Rhythm is irregularly irregular, A fib with No ectopy. PA rt interval is normal. QRS interval is normal. QT interval is normal. No Q waves. No ST changes noted. Interpreted by me. Administered Medications: 10:30 Drug: DuoNeb Nebulize (3:1) (2.5 mg - 0.5 mg) 3 ml Nebulizer once Route: Nebulizer; db 18:41 Follow up: Response: No adverse reaction db 13:05 Drug: Furosemide IVP 40 mg IVP once; give over 2 minutes Route: IVP; Site: left forearm;db 18:40 Follow up: Response: No adverse reaction db 14:12 Drug: Pantoprazole IVP 80 mg IVP once Route: IVP; Site: left forearm; db 18:40 Follow up: Response: No adverse reaction db Disposition: 13:02 Critical Care:. rt Disposition Summary: 10/02/24 12:55 Transfer Ordered Notes: Reason: Higher level of care rt Condition: Fair rt Problem: new rt Symptoms: have improved rt Transfer Location: [facility](10/02/24 16:07) rt Accepting Physician: (10/02/24 18:41) db Diagnosis - CHF exacerbation rt - Hypoxia rt - Upper GI bleed rt - Symptomatic anemia rt Forms: - Medication Reconciliation Form rt - SBAR form rt Critical care time excluding procedures: 13:02 Critical care time: Bedside Care: 30 minutes, Consultation: 10 minutes. Total time: 40 rt minutes Signatures: Dispatcher [employer] EDMS Anuradha Arreguin RN RN db Chuckie Galvan MD MD rt Corrections: (The following items were deleted from the chart) 10:07 10:07 Chest Single View+RAD.RAD.BRZ ordered. EDMS EDMS 10:07 10:07 BiPap ([employer] Only)+RC.RAD.BRZ ordered. EDMS EDMS 13:36 10:07 SARS-COV-2 Antigen Rapid+I.LAB.BRZ ordered. EDMS EDMS 13:44 12:39 TYPE AND SCREEN+BB.LAB.BRZ ordered. EDMS EDMS 14:25 10:07 BASIC METABOLIC PANEL+C.LAB.BRZ ordered. EDMS EDMS 14:25 10:07 CBC+H.LAB.BRZ ordered. EDMS EDMS 14:25 10:07 HEPATIC FUNCTION+C.LAB.BRZ ordered. EDMS EDMS 14:25 10:07 PROBNP+C.LAB.BRZ ordered. EDMS EDMS 14:25 10:07 Troponin High Sensitivity+C.LAB.BRZ ordered. EDMS EDMS 14:26 10:07 Influenza Screen (A \T\ B)+BA.LAB.BRZ ordered. EDMS EDMS 14:26 10:17 LACTATE+C.LAB.BRZ ordered. EDMS EDMS 14:44 10:07 Arterial Blood Gas+RC.LAB.BRZ ordered. EDMS EDMS 16:07 12:55 rt rt 16:07 12:55 [facility] rt rt 16:38 10:14 LACTATE+C.LAB.BRZ ordered. EDMS EDMS 18:41 16:07 rt db
--- NOTE | 2024-10-02 12:56 | ER ---
Nurse's Notes [facility] Name: Seferino Walton Age: 74 yrs Sex: Male : 1950 Arrival Date: 10/02/2024 Time: 10:01 Bed 3 Private MD: Diagnosis: CHF exacerbation;Hypoxia;Upper GI bleed;Symptomatic anemia Presentation: 10/02 10:00 Chief complaint:. Coronavirus screen: Client denies travel out of the [place] in the last db 14 days. At this time, the client does not indicate any symptoms associated with coronavirus-19. Ebola Screen: Patient negative for fever greater than or equal to 101.5 degrees Fahrenheit, and additional compatible Ebola Virus Disease symptoms Patient denies exposure to infectious person. Patient denies travel to an Ebola-affected area in the 21 days before illness onset. Initial Sepsis Screen: Does the patient meet any 2 criteria? Yes Does the patient have a suspected source of infection? No. Patient's initial sepsis screen is negative. Risk Assessment: Do you want to hurt yourself or someone else? Patient reports no desire to harm self or others. Onset of symptoms was October 02, 2024. Care prior to arrival: Medication(s) given: SOLUMEDROL 125 MG, MAGNESIUM 2 GM IV initiated. 18 GA, in the right antecubital area, Med neb given. 10:00 Method Of Arrival: EMS: [facility] db 10:00 Acuity: GUILHERME 2 db Triage Assessment: 10:00 General: Appears distressed, uncomfortable, Behavior is calm, cooperative. Pain: Denies db pain. Neuro: Level of Consciousness is awake, alert, obeys commands, Oriented to person, place, time, situation. Respiratory: Reports shortness of breath at rest cough that is air hunger labored breathing Airway is patent Respiratory effort is even, labored, Respiratory pattern is regular, symmetrical, Onset: The symptoms/episode began/occurred suddenly, the patient has severe shortness of breath. Historical: - Allergies: 10:00 No Known Allergies; db - Home Meds: 17:17 Eliquis oral [Active]; amlodipine oral [Active]; Advair Diskus Inhl [Active]; db Simvastatin Oral [Active]; - PMHx: 17:17 Hypertensive disorder; Atrial fibrillation; Hypercholesterolemia; db - Immunization history:: Adult Immunizations unknown. - Infectious Disease History:: Denies. - Social history:: Smoking status: Patient reports the use of cigarette tobacco products, smokes one pack cigarettes per day. - Family history:: not pertinent. Screenin:46 [facility] ED Fall Risk Assessment (Adult) History of falling in the last 3 months, db including since admission No falls in past 3 months (0 pts) Confusion or Disorientation No (0 pts) Intoxicated or Sedated No (0 pts) Impaired Gait No (0 pts) Mobility Assist Device Used Yes (1 pt) Altered Elimination No (0 pt) Score/Fall Risk Level 0 - 2 = Low Risk Oriented to surroundings, Maintained a safe environment. Abuse screen: Denies threats or abuse. Denies injuries from another. Nutritional screening: No deficits noted. Tuberculosis screening: No symptoms or risk factors identified. Assessment: 10:05 Reassessment: RT CALLED FOR PT. db 10:26 Reassessment: RT AT PATIENT BEDSIDE. PT PLACED ON BIPAP. db 10:46 General: Appears comfortable, Behavior is cooperative. Neuro: Level of Consciousness is db awake, alert, obeys commands, Oriented to person, place, time, situation. Cardiovascular: Capillary refill < 3 seconds Patient's skin is warm and dry. Rhythm is atrial fibrillation. Respiratory: Airway is patent Respiratory effort is even, Respiratory pattern is regular. Derm: Skin is intact, SWELLING ALL OVER BODY. 11:54 Reassessment: Patient appears in no apparent distress at this time. Patient and/or db family updated on plan of care and expected duration. Pain level reassessed. Patient is alert, oriented x 3, equal unlabored respirations, skin warm/dry/pink. Reassessment: Patient states symptoms have improved. Respiratory: Airway is patent Respiratory effort is even, unlabored, Respiratory pattern is regular, symmetrical. 12:40 Reassessment: PATIENT SWITCH TO NC 4 L BY RT. 95%. db 13:15 Reassessment: Patient appears in no apparent distress at this time. Patient and/or db family updated on plan of care and expected duration. Pain level reassessed. Patient is alert, oriented x 3, equal unlabored respirations, skin warm/dry/pink. Patient states feeling better. Respiratory: Airway is patent Breath sounds are coarse. 13:17 Reassessment: CALLED RT FOR PATIENT DUE TO O2 88% ON NC 4L. db 13:20 Reassessment: PT PLACED BACK ON BIPAP. db 13:50 Reassessment: FAMILY AT PATIENT BEDSIDE. db 14:22 Reassessment: PATIENT PLACED ON HIGH FLOW NC. db 15:00 Reassessment: Patient appears in no apparent distress at this time. Patient and/or db family updated on plan of care and expected duration. Pain level reassessed. Patient is alert, oriented x 3, equal unlabored respirations, skin warm/dry/pink. 15:15 Reassessment: Patient is alert/active/playful, equal unlabored respirations, skin db warm/dry/pink. NOTIFIED DR. GALVAN UNABLE TO PLACE URINARY ANDREWS DUE TO UNCIRCUMCISED AND SWELLING UNABLE TO PULL DOWN FORESKIN. PT CHANGED INTO GOWN. MALE PURIWICK PLACED. 15:42 Reassessment: CALLED BLOOD BANK FOR STATUS ON IF BLOOD IS READY. db 16:00 Reassessment: Patient appears in no apparent distress at this time. Patient and/or db family updated on plan of care and expected duration. Pain level reassessed. Patient is alert, oriented x 3, equal unlabored respirations, skin warm/dry/pink. 16:30 Reassessment: BLOOD TRANSFUSION STARTED SEE TRANSFUSION RECORD. db 17:00 Reassessment: Patient appears in no apparent distress at this time. Patient and/or db family updated on plan of care and expected duration. Pain level reassessed. Patient is alert, oriented x 3, equal unlabored respirations, skin warm/dry/pink. 17:08 Reassessment: CALLED NURSE AT [facility], . MARYELLEN PASCUAL. db 17:33 Reassessment: CALLED AND LEFT MESSAGE THAT PATIENT WILL BE TRANSFERRED TO [facility]. [phone]. 18:27 Reassessment: Patient appears in no apparent distress at this time. Patient and/or db family updated on plan of care and expected duration. Pain level reassessed. Patient is alert, oriented x 3, equal unlabored respirations, skin warm/dry/pink. EMS ARRIVAL FOR PATIENT TRANSPORT. 18:39 Reassessment: Patient appears in no apparent distress at this time. Patient and/or db family updated on plan of care and expected duration. Pain level reassessed. Patient is alert, oriented x 3, equal unlabored respirations, skin warm/dry/pink. Patient states feeling better. Patient states symptoms have improved. Vital Signs: 10:00 BP 146 / 64; Pulse 90; Resp 28; Temp 97.7; Pulse Ox 86% on 4 lpm NC; Weight 93.89 kg; db 10:30 BP 144 / 60; Pulse 84; Resp 18; Pulse Ox 100% ; db 11:30 BP 136 / 55; Pulse 81; Resp 16; Pulse Ox 100% on BiPAP; db 12:45 BP 130 / 55; Pulse 89; Resp 23; Pulse Ox 94% ; db 13:17 BP 130 / 48; Pulse 87; Resp 17; Pulse Ox 88% on 4 lpm NC; db 14:00 BP 139 / 63; Pulse 93; Resp 20; Pulse Ox 100% on BiPAP; db 14:18 BP 137 / 70; Pulse 93; Pulse Ox 97% on 8 lpm NC; db 14:30 BP 124 / 53; Pulse 83; Resp 20; Pulse Ox 98% on 8 lpm NC; db 15:00 BP 139 / 55; Pulse 94; Resp 28; Pulse Ox 94% on 8 lpm NC; db 16:00 BP 136 / 53; Pulse 83; Resp 18; Pulse Ox 97% ; db 16:30 BP 149 / 51; Pulse 92; Resp 22; Temp 98(O); Pulse Ox 95% on 8 lpm NC; db 17:25 BP 136 / 59; Pulse 83; Resp 18; Temp 98.6(O); Pulse Ox 98% ; db 18:00 BP 135 / 55; Pulse 86; Resp 19; Pulse Ox 98% on 8 lpm NC; db 18:15 BP 129 / 53; Pulse 76; Resp 18; Pulse Ox 96% ; db 10:00 PLACED ON NON REBREATHER. DR. GALVAN AT PATIENT BEDSIDE. RT CALLED db Vitals: 16:30 Cardiac Rhythm Assessment Atrial fibrillation. db [place] Coma Score: 16:53 Eye Response: spontaneous(4). Motor Response: obeys commands(6). Verbal Response: db oriented(5). Total: 15. ED Course: 10:00 Arm band placed on Patient placed in an exam room. db 10:06 Patient arrived in ED. ph 10:06 Chuckie Galvan MD is Attending Physician. rt 10:08 Arreguin, Anuradha, RN is Primary Nurse. db 10:11 Triage completed. db 10:15 Maintain EMS IV. Dressing intact. Good blood return noted. Site clean \T\ dry. Gauge \T\ db site: 18 G RAC. 10:18 Initial lab(s) drawn, by me, sent to lab. Inserted saline lock: 20 gauge in left bc6 forearm, using aseptic technique. Blood collected. Flushed with 10 mL NS. 10:19 COVID swab sent to lab. Flu and/or RSV swab sent to lab. bc6 11:44 Chest Single View In Process Unspecified. EDMS 12:[address] [facility]. bd 13:03 Repeat lab(s) drawn. sent to lab. db 13:[address] [facility], [facility], [facility] due to no beds at this time, per Alfredo Artis. 13:19 pt denied at 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 14:17 Provided Education on: Blood Transfusion. db 14:17 Client placed on continuous cardiac and pulse oximetry monitoring. NIBP monitoring db applied. alarm security or surveillance monitor on. Pulse ox on. NIBP on. Consent for blood and/or blood product transfusion explained by staff, signed by spouse. 16:06 pt accepted in transfer to [facility] by dr Dumont admin approval given by Maria Esther Ng RN pt going to [facility]. 16:53 Patient has correct armband on for positive identification. Bed in low position. Call db light in reach. Side rails up X2. 16:53 Warm blanket given. Pillow given. db 16:53 Oxygen administration via nasal cannula 8 Response to oxygen therapy: symptoms improved.db 18:32 No provider procedures requiring assistance completed. Patient transferred, IV remains db in place. Administered Medications: 10:30 Drug: DuoNeb Nebulize (3:1) (2.5 mg - 0.5 mg) 3 ml Nebulizer once Route: Nebulizer; db 18:41 Follow up: Response: No adverse reaction db 13:05 Drug: Furosemide IVP 40 mg IVP once; give over 2 minutes Route: IVP; Site: left forearm;db 18:40 Follow up: Response: No adverse reaction db 14:12 Drug: Pantoprazole IVP 80 mg IVP once Route: IVP; Site: left forearm; db 18:40 Follow up: Response: No adverse reaction db Medication: 16:30 Blood products: PRBCs X 1 unit given. db 16:53 VIS not applicable for this client. db Output: 18:00 Urine: 525ml (Voided); Total: 525ml. db Outcome: 12:55 ER care complete, transfer ordered by . rt 18:32 Transferred by ground EMS to [facility], X-rays sent w/ patient. db 18:32 Condition: stable 18:32 Instructed on the need for transfer, 18:41 Patient left the ED. db Signatures: Dispatcher [employer] EDMS Alma Mesa Patricia, RN RN ph Anuradha Arreguin RN RN db Chuckie Galvan MD MD rt Mercedes Padron [facility] Corrections: (The following items were deleted from the chart) 10:41 10:41 DuoNeb Nebulize (3:1) (2.5 mg - 0.5 mg) 3 ml Nebulizer db db 13:36 10:19 SARS-COV-2 Antigen Rapid+I.LAB.BRZ drawn and sent. [facility] EDMS 14:25 10:19 BASIC METABOLIC PANEL+C.LAB.BRZ drawn and sent. [facility] EDMS 14:25 10:19 CBC+H.LAB.BRZ drawn and sent. [facility] EDMS 14:25 10:19 HEPATIC FUNCTION+C.LAB.BRZ drawn and sent. [facility] EDMS 14:25 10:19 PROBNP+C.LAB.BRZ drawn and sent. [facility] EDMS 14:25 10:19 Troponin High Sensitivity+C.LAB.BRZ drawn and sent. [facility] EDMS 14:26 10:19 Influenza Screen (A \T\ B)+BA.LAB.BRZ drawn and sent. [facility] EDMS
[2024-10-02] MEDS ORDERED: PANTOPRAZOLE 40 MG INJ ONE (14:03)
[2024-10-02] MEDS ORDERED: NA CHLORIDE 0.9% 250 ML ONE (16:13)
--- NOTE | 2024-10-04 11:59 | EKG ---
Test Date: 2024-10-02 Test Time: 10:24:20 Slitter Cut Off Operator: RAPHAEL MEASUREMENT RESULTS: Intervals: Rate: 91 CA: QRSD: 74 QT: 366 QTc: 450 [place]: P: CA: QRS: 70 T: 12 INTERPRETIVE STATEMENTS: Atrial fibrillation Nonspecific T wave abnormality Abnormal ECG No previous ECG available for comparison Electronically Signed On 10-04-24 11:56:31 SYSTEMS CHECKOUT MECHANIC by Bhupinder Ohara
[2024-10-05 01:36] VITALS: BP 129/53; TEMP 98.6; O2SAT 96
== END 2024-10-02 18:41 | disposition short-term general hospital (02) ==
LOC: ER 10:01
DX: I50.9 Heart failure, unspecified (principal); D64.9 Anemia, unspecified; K92.2 Gastrointestinal hemorrhage, unspecified; I48.91 Unspecified atrial fibrillation; Z79.01 Long term (current) use of anticoagulants; I10 Essential (primary) hypertension; F17.210 Nicotine dependence, cigarettes, uncomplicated; Z99.81 Dependence on supplemental oxygen; Z11.52 Encounter for screening for COVID-19
CPT/HCPCS: 93005; 85025; 80048; 36415; 86900; 86850; 86901; 80076; 83605 ×2; 86920; 84484; 83880; 87804 ×2; 71045; 36430; 96375; 96374; 99285; 87811; 94660; J1940; J7613; J7644; J2470; P9016; J7050